=== PATIENT | male | born 1955 | race Caucasian/White ===

== ENCOUNTER 2020-07-06 08:54 | Inpatient (IN) ==
[~2020-07-06 08:54] MED LIST: Buffered Lidocaine 1% SYRIN 1 ml INTRADERM ONE; Famotidine IV 10 MG/ML 2 ml VIAL (20 mg) IV ONE; Lactated Ringers 1000 ml BAG 1,000 ML IV SCH
[2020-07-06] MEDS ORDERED: ceFAZolin 2 GM PREMIX 2 GM/50 ML BAG ONE (09:13)
[2020-07-06] MEDS ORDERED: Famotidine IV 10 MG/ML 2 ml VIAL (20 mg) ONE (09:14)
[2020-07-06] MEDS ORDERED: Lidocaine 2% PF 5 ML VIAL ONE ×2 (09:25→10:15)
[2020-07-06] MEDS ORDERED: Propofol 10 MG/ML 20 ML BTL ONE ×2 (09:27→12:49)
[2020-07-06] MEDS ORDERED: Ondansetron 4 mg VIAL 2 MG/ML 2 ml VIAL ONE (09:28)
[2020-07-06] MEDS ORDERED: Ketamine HCL 50 mg/ml 10 ml VIAL (500 MG) ONE (09:28)
[2020-07-06] MEDS ORDERED: Midazolam 5 mg/5 ml VIAL 1 mg/ml 5 ml VIAL (5 mg) ONE (10:14)
[2020-07-06] MEDS ORDERED: ROPIVACAINE 5 MG/ML 30 ML BTL (0.5%) ONE (10:15)
[2020-07-06] MEDS ORDERED: fentaNYL 100 mcg/2 ml 50 MCG/ML VIAL ONE (10:15)
[2020-07-06] MEDS ORDERED: Ropivacaine 5 MG/ML 20 ML VIAL 0.5% (100 MG) ONE (10:50)
[2020-07-06] MEDS ORDERED: Ondansetron 4 mg VIAL 2 MG/ML 2 ml VIAL IV PRN ×2 (11:02→12:25)
[2020-07-06] MEDS ORDERED: Naloxone 0.4 mg VIAL 0.4 mg/ml 1 ml VIAL IV PRN (11:02)
[2020-07-06] MEDS ORDERED: fentaNYL 100 mcg/2 ml 50 MCG/ML VIAL IV PRN (11:02)
[2020-07-06] MEDS ORDERED: Bupivacaine 0.5% SDV PF 30ML VIAL ONE (11:23)
[2020-07-06] MEDS ORDERED: EPHEDrine (Pressors) 50 MG/ML VIAL ONE (12:13)
[2020-07-06] MEDS ORDERED: Ondansetron ODT 4 mg TAB 4 MG TAB PO PRN (12:25)
[2020-07-06] MEDS ORDERED: diPHENhydraMINE IV 50 MG/ML 1 ml VIAL (BENADRYL) IV PRN (12:25)
[2020-07-06] MEDS ORDERED: Lactulose 30 ml UDC PO PRN (12:25)
[2020-07-06] MEDS ORDERED: diPHENhydraMINE 25 mg TAB PO PRN (12:25)
[2020-07-06] MEDS ORDERED: Morphine 2 MG/ML SYRINGE IV PRN (12:25)
[2020-07-06] MEDS ORDERED: Magnesium Hydroxide LIQ 30 ML UDC PO PRN (12:25)
[2020-07-06] MEDS ORDERED: Dextrose 50% Syringe 50 ml 25 GM/50 ML SYRINGE IV PUSH PRN (14:45)
[2020-07-06] MEDS: Lactated Ringers 1000 ml BAG 1,000 ML IV SCH (17:11)
[2020-07-06] MEDS: oxyCODONE/Acetamin 5/325 mg TAB PO PRN ×2 (18:21→21:59)
[2020-07-06] MEDS: Magnesium Hydroxide LIQ 30 ML UDC PO SCH (20:11)
[2020-07-06] MEDS: ceFAZolin 1 GM ADVAN 1 GM in NS 0.9% 50 ML 50 ML IVPB SCH (20:13)
[2020-07-06] MEDS ORDERED: LINAGLIPTIN METFORMIN PO SCH (21:00)
[2020-07-07] MEDS: ceFAZolin 1 GM ADVAN 1 GM in NS 0.9% 50 ML 50 ML IVPB SCH ×2 (04:20→12:09)
[2020-07-07] MEDS: Lactated Ringers 1000 ml BAG 1,000 ML IV SCH (04:21)
[2020-07-07 05:56] LABS: Hematocrit 37 % (42-52); Hemoglobin 12.7 g/dL (14.0-18.0); Mean Platelet Volume 8.5 fL (7.4-10.4); Platelet Count 228 10^3/uL (150-450)
[2020-07-07] MEDS: oxyCODONE/Acetamin 5/325 mg TAB PO PRN ×2 (06:13→10:14)
[2020-07-07 06:21] LABS: Calcium 8.5 mg/dL (8.6-10.3); EGFR African American 97.5 (>60); EGFR Non-African American 80.5 (>60); Potassium 4.2 mmol/L (3.5-5.0)
[2020-07-07] MEDS ORDERED: Vitamin THERAPEUTIC TAB PO SCH (09:00)
[2020-07-07] MEDS: Magnesium Hydroxide LIQ 30 ML UDC PO SCH (09:21)
[2020-07-07 11:15] VITALS: BP 148/70
== END 2020-07-07 13:30 | disposition home or self-care (01) | DRG 302 ==
LOC: AA 08:54 → SSU 16:21
PROVIDERS: ADMIT Orthopaedic Surgery Adult Reconstructive Orthopaedic Surgery; ATTEND Orthopaedic Surgery Adult Reconstructive Orthopaedic Surgery

== ENCOUNTER 2022-02-14 11:56 | Observation (INO) ==
[~2022-02-14 11:56] MED LIST changes: -Famotidine IV 10 MG/ML 2 ml VIAL (20 mg) IV ONE
[2022-02-14] MEDS ORDERED: Propofol 10 MG/ML 20 ML BTL ONE (12:26)
[2022-02-14] MEDS ORDERED: ceFAZolin 2 GM PREMIX 2 GM/50 ML BAG ONE (12:37)
[2022-02-14 12:45] LABS: Hematocrit 48 % (42-52); Hemoglobin 15.8 g/dL (14.0-18.0); Mean Corpuscular HGB Conc 33 g/dL (31-36); Mean Corpuscular Hemoglobin 29 pg (27-31); Mean Corpuscular Volume 89 fL (80-94); Mean Platelet Volume 8.9 fL (7.4-10.4); Platelet Count 279 10^3/uL (150-450); Red Blood Count 5.39 10^6 /uL (4.18-5.48); Red Cell Distribution Width 13 % (10-15); White Blood Count 10.9 10^3/uL (3.5-10.8)
[2022-02-14] MEDS ORDERED: Lidocaine 1% MPF 5 ML VIAL ONE (13:37)
[2022-02-14] MEDS ORDERED: ROPIVACAINE 5 MG/ML 30 ML BTL (0.5%) ONE ×2 (13:37→14:59)
[2022-02-14] MEDS ORDERED: Midazolam 2 mg/2 ml VIAL 1 mg/ml 2 ml VIAL (2 mg) ONE ×2 (13:44→15:00)
[2022-02-14] MEDS ORDERED: Phenylephrine IV 10 MG/ML 1 ml VIAL ONE (14:22)
[2022-02-14] MEDS ORDERED: Lidocaine 2% PF 5 ML VIAL ONE (14:22)
[2022-02-14] MEDS ORDERED: Ondansetron 4 mg VIAL 2 MG/ML 2 ml VIAL ONE (14:23)
[2022-02-14] MEDS ORDERED: Dexamethasone IV 4 MG/ML VIAL 1 ml VIAL ONE (14:23)
[2022-02-14] MEDS ORDERED: HYDROmorphone 1 MG/1 ML SYRINGE IV PRN (16:59)
[2022-02-14] MEDS ORDERED: Naloxone 0.4 mg VIAL 0.4 mg/ml 1 ml VIAL IV PRN (16:59)
[2022-02-14] MEDS ORDERED: Magnesium Hydroxide LIQ 30 ML UDC PO PRN (17:43)
[2022-02-14] MEDS ORDERED: Morphine 2 MG/ML SYRINGE IV PRN (17:43)
[2022-02-14] MEDS ORDERED: Ondansetron 4 mg VIAL 2 MG/ML 2 ml VIAL IV PRN (17:43)
[2022-02-14] MEDS ORDERED: Lactulose 30 ml UDC PO PRN (17:43)
[2022-02-14] MEDS ORDERED: Ondansetron ODT 4 mg TAB 4 MG TAB PO PRN (17:43)
[2022-02-14] MEDS ORDERED: Lactated Ringers 1000 ml BAG 1,000 ML IV SCH (18:00)
[2022-02-14] MEDS ORDERED: Dextrose 50% Syringe 50 ml 25 GM/50 ML SYRINGE IV PUSH PRN (18:14)
[2022-02-14] MEDS: Magnesium Hydroxide LIQ 30 ML UDC PO SCH (23:41)
[2022-02-14] MEDS: ceFAZolin 1 GM ADVAN 1 GM in NS 0.9% 50 ML 50 ML IVPB SCH (23:48)
[2022-02-15 06:00] LABS: Hematocrit 41 % (42-52); Hemoglobin 13.6 g/dL (14.0-18.0); Mean Platelet Volume 8.9 fL (7.4-10.4); Platelet Count 244 10^3/uL (150-450)
[2022-02-15 06:38] LABS: Calcium 9.2 mg/dL (8.6-10.3); Potassium 4.9 mmol/L (3.5-5.0)
[2022-02-15 06:43] LABS: eGFR CKD-EPI 66.3 (>60)
[2022-02-15] MEDS: ceFAZolin 1 GM ADVAN 1 GM in NS 0.9% 50 ML 50 ML IVPB SCH ×2 (07:26→15:19)
[2022-02-15] MEDS: Magnesium Hydroxide LIQ 30 ML UDC PO SCH (08:17)
[2022-02-15] MEDS ORDERED: Vitamin THERAPEUTIC TAB PO SCH (09:00)
[2022-02-15 11:14] VITALS: BP 122/74
== END 2022-02-15 16:05 | disposition home or self-care (01) ==
LOC: SSU 11:56 → OR 11:56 → EDSTATUS 14:15
PROVIDERS: ADMIT Orthopaedic Surgery Adult Reconstructive Orthopaedic Surgery; ATTEND Orthopaedic Surgery Adult Reconstructive Orthopaedic Surgery